=== PATIENT | female | born 1935 | race Caucasian/White ===

== ENCOUNTER 2024-07-16 16:17 | Inpatient (IN) | payer MEDICARE, BC ==
[~2024-07-16] VITALS: Ht 170.2 cm; Wt 70.9 kg
[~2024-07-16 16:17] MED LIST: ACET-1008 PO; DIO160T PO; GUAI400T92 PO; HYDR-3965 PO; LOP25T PO; MAG30ORA PO; MAGNESIUM HYDROXIDE PO; MELO-82 PO; MULT-1179 PO; MULT-785 PO; SIMV-42 PO; [UNRECOGNIZED DRUG - OTHER] NS
[2024-07-16 17:25] LABS: BASOPHILS % (AUTO) 0.4 % (0-1); EOSINOPHILS % (AUTO) 0.4 % (0-6); HEMATOCRIT 42.9 % (35.0-45.0); HEMOGLOBIN 14.8 g/dl (12.0-16.0); LYMPHOCYTES # (AUTO) 1.6 X10'3 (1.1-4.8); LYMPHOCYTES % (AUTO) 14.3 % (21-51); MEAN CORPUSCULAR HGB CONC 34.6 g/dL (33.0-36.5); MEAN CORPUSCULAR VOLUME 92.5 FL (78-98); MEAN PLATELET VOLUME 7.9 FL (7.4-10.4); MONOCYTES # (AUTO) 1.2 X10'3 (0-0.9); MONOCYTES % (AUTO) 11.2 % (2-12); NEUTROPHILS % (AUTO) 73.7 % (42-75); PLATELET COUNT 325 X10'3 (140-440); RED BLOOD COUNT 4.64 X10'6 (4.20-5.60); RED CELL DISTRIBUTION WIDTH 13.2 % (11.5-14.5); WHITE BLOOD COUNT 10.9 X10'3 (4.5-11.0)
[2024-07-16 18:04] LABS: BILIRUBIN,URINE NEGATIVE (Neg); CLARITY,URINE CLEAR (Clear); COLOR,URINE YELLOW (Yellow); GLUCOSE, URINE NEGATIVE (Neg); KETONES,URINE 15 mg/dl (Neg); LEUKOCYTE ESTERASE ,URINE NEGATIVE (Neg); NITRITES, URINE NEGATIVE (Neg); OCCULT BLOOD,URINE TRACE-INTACT (Neg); PH,URINE 5.5 (4.8-8.0); PROTEIN,URINE NEGATIVE (Neg); UROBILINOGEN,URINE 0.2 E.U/dL (0.2-1.0)
[2024-07-16 18:07] LABS: UA COLLECTION TYPE NON-SPECIFIED
[2024-07-16 18:08] LABS: BACTERIA,URINE NONE SEEN /HPF (Neg); MUCUS STRANDS FEW /LPF (Neg); RBC,URINE 0-2 /HPF (0-2); SQUAMOUS EPITHELIAL CELL,UR FEW /LPF (FEW); WBC,URINE 0-4 /HPF (0-4)
[2024-07-16 18:22] LABS: ALBUMIN 2.9 G/DL (3.4-5.0); ANION GAP 12 (8-16); BLOOD UREA NITROGEN 21 MG/DL (7-18); BUN/CREATININE RATIO 26.9 (10.0-20.0); CALCIUM 9.4 MG/DL (8.5-10.1); CHLORIDE 95 MMOL/L (99-107); CREATININE 0.78 MG/DL (0.40-0.90); GLUCOSE 137 MG/DL (70-104); LIPASE 56 U/L (16-77); POTASSIUM 3.9 MMOL/L (3.5-5.1); SODIUM 130 MMOL/L (135-145); TOTAL CARBON DIOXIDE 22.8 MMOL/L (24-32); eCRCL 48 ML/MIN; eGFR 70 ML/MIN
[2024-07-16] MEDS: CefTRIAXone/D5W-Rocephin 1gm 50 ML IV ONE (18:50)
[2024-07-16 19:05] LABS: D-DIMER 0.98 MG/L FEU (0-0.50)
[2024-07-16 19:11] LABS: PRO BRAIN NATRIURETIC PEPTIDE 406 PG/ML (0-450)
[2024-07-16] MEDS ORDERED: iohexol 350MG/ML 100ml bottle IV ONE (19:50)
[2024-07-16] MEDS: azithromycin/NS 500mg/250ml 250 ML IV SCH (20:25)
[2024-07-16] MEDS: normal saline 1000ML IV soln IVB ONE (20:25)
[2024-07-16] MEDS ORDERED: METO25TA6 PO (20:30)
[2024-07-16] MEDS ORDERED: IRBE1TAB33 PO (20:30)
[2024-07-16] MEDS ORDERED: PANT40TA54 PO (20:31)
[2024-07-16] MEDS ORDERED: magnesium Cl slow-release 64mg tablet PO PRN (21:35)
[2024-07-16] MEDS ORDERED: magnesium sulf-water 2g/50mL 50 ML IV PRN (21:35)
[2024-07-16] MEDS ORDERED: potassium Cl 40MEQ/1/2NS 520ml 520 ML IV PRN (21:35)
[2024-07-16] MEDS ORDERED: potassium Cl 20 mEq SR tablet PO PRN (21:35)
[2024-07-16] MEDS ORDERED: mag hydrox/Alum hydrox/simeth 30ml oral suspension PO PRN (21:35)
[2024-07-16] MEDS ORDERED: magnesium hydroxide 30ml (MOM) UD suspension PO PRN (21:35)
[2024-07-16] MEDS ORDERED: acetaminophen 325mg tablet PO PRN (21:35)
[2024-07-16] MEDS ORDERED: ondansetron/PF 4mg/2ml inj IV PRN (21:35)
[2024-07-16] MEDS ORDERED: magnesium sulf-water 4G/100mL 100 ML IV PRN (21:35)
[2024-07-16] MEDS: normal saline 1000ml 1,000 ML IV SCH (22:33)
[2024-07-16] MEDS ORDERED: albuterol 2.5 MG/3 ML nebule NEB PRN (23:20)
[2024-07-16] MEDS: guaiFENesin ER 600mg tablet PO SCH (23:36)
[2024-07-17 01:26] VITALS: PULSE 58; RESP 20; O2SAT 92
[2024-07-17 03:14] LABS: BASOPHILS % (AUTO) 0.2 % (0-1); EOSINOPHILS % (AUTO) 0.4 % (0-6); HEMATOCRIT 36.1 % (35.0-45.0); HEMOGLOBIN 12.6 g/dl (12.0-16.0); LYMPHOCYTES % (AUTO) 20.5 % (21-51); MEAN CORPUSCULAR HEMOGLOBIN 32.2 PG (27.0-31.0); MEAN CORPUSCULAR HGB CONC 34.7 g/dL (33.0-36.5); MEAN CORPUSCULAR VOLUME 92.5 FL (78-98); MONOCYTES # (AUTO) 1.3 X10'3 (0-0.9); MONOCYTES % (AUTO) 12.8 % (2-12); NEUTROPHILS # (AUTO) 6.5 X10'3 (1.8-7.7); NEUTROPHILS % (AUTO) 66.1 % (42-75); PLATELET COUNT 262 X10'3 (140-440); RED CELL DISTRIBUTION WIDTH 13.1 % (11.5-14.5); WHITE BLOOD COUNT 9.8 X10'3 (4.5-11.0)
[2024-07-17 03:25] LABS: APTT 27 SECONDS (22-32); INR 1.2 INR; PROTHROMBIN TIME 12.3 SECONDS (9.0-12.0)
[2024-07-17 03:39] LABS: ALANINE AMINOTRANSFERASE 18 U/L (12-78); ALBUMIN 2.3 G/DL (3.4-5.0); ALBUMIN/GLOBULIN RATIO 0.6 (1.1-1.5); ALKALINE PHOSPHATASE 93 IU/L (46-116); ANION GAP 6 (8-16); ASPARTATE AMINO TRANSFERASE 16 U/L (10-37); BILIRUBIN,TOTAL 0.7 MG/DL (0.1-1.0); BLOOD UREA NITROGEN 15 MG/DL (7-18); BUN/CREATININE RATIO 22.1 (10.0-20.0); CHLORIDE 103 MMOL/L (99-107); CREATININE 0.68 MG/DL (0.40-0.90); GLUCOSE 98 MG/DL (70-104); MAGNESIUM 1.8 MG/DL (1.5-2.4); PHOSPHORUS 3.2 MG/DL (2.3-4.5); POTASSIUM 3.5 MMOL/L (3.5-5.1); SODIUM 135 MMOL/L (135-145); TOTAL CARBON DIOXIDE 25.8 MMOL/L (24-32); TOTAL PROTEIN 6.1 G/DL (6.4-8.2); eCRCL 55 ML/MIN; eGFR 81 ML/MIN
[2024-07-17] MEDS: K and/or MAG REPLACEMENT MC SCH (08:00)
[2024-07-17 08:03] LABS: URINE AMPHETAMINE SCREEN NEGATIVE (Neg); URINE BARBITUATE SCREEN NEGATIVE (Neg); URINE BENZODIAZEPINES SCREEN NEGATIVE (Neg); URINE CANNABINOID SCREEN NEGATIVE (Neg); URINE COCAINE SCREEN NEGATIVE (Neg); URINE METHADONE SCREEN NEGATIVE (Neg); URINE OPIATE SCREEN NEGATIVE (Neg); URINE PHENCYCLIDINE SCREEN NEGATIVE (Neg)
[2024-07-17] MEDS: benzonatate 100mg capsule PO SCH (08:05)
[2024-07-17] MEDS: pantoprazole 40mg Tablet.DR PO SCH (08:05)
[2024-07-17] MEDS: doxycycline inj 100 MG in normal saline 100ml IV soln 100 ML IV SCH (08:05)
[2024-07-17] MEDS: CefTRIAXone 2gm/D5W 50ml BAG 50 ML IV SCH (08:05)
[2024-07-17] MEDS: HYDROchlorothiazide 12.5mg capsule PO SCH (08:06)
[2024-07-17] MEDS: metoprolol tartrate 25mg tablet PO SCH (08:06)
[2024-07-17] MEDS: docusate sod 100mg capsule PO SCH (08:07)
[2024-07-17] MEDS: losartan 50mg tablet PO SCH (08:12)
[2024-07-17] MEDS ORDERED: AMLO5TAB16 PO (19:45)
[2024-07-17] MEDS: simvastatin 20mg tablet PO SCH (20:34)
[2024-07-17] MEDS: enoxaparin 40mg/0.4ml syringe SQ SCH (21:53)
[2024-07-18] VITALS (9 sets, daily range): BP systolic 123–143; BP diastolic 56–66; PULSE 79–124; RESP 13–24; TEMP 97.3–98; O2SAT 92–95
[2024-07-18 03:41] LABS: APTT 30 SECONDS (22-32)
[2024-07-18 03:47] LABS: ALANINE AMINOTRANSFERASE 25 U/L (12-78); ALBUMIN 2.3 G/DL (3.4-5.0); ALBUMIN/GLOBULIN RATIO 0.6 (1.1-1.5); ALKALINE PHOSPHATASE 102 IU/L (46-116); ANION GAP 11 (8-16); ASPARTATE AMINO TRANSFERASE 22 U/L (10-37); BILIRUBIN,TOTAL 0.6 MG/DL (0.1-1.0); BLOOD UREA NITROGEN 11 MG/DL (7-18); BUN/CREATININE RATIO 18.3 (10.0-20.0); CALCIUM 8.8 MG/DL (8.5-10.1); CHLORIDE 103 MMOL/L (99-107); CHOL/HDL RATIO 3.8 (0.00-4.99); CHOLESTEROL 114 MG/DL (0-200); FREE T4 (FREE THYROXINE) 1.53 NG/DL (0.73-1.40); GLUCOSE 96 MG/DL (70-104); HDL CHOLESTEROL 30 MG/DL (35-60); LDL CHOLESTEROL 68 MG/DL (50-100); MAGNESIUM 1.8 MG/DL (1.5-2.4); PHOSPHORUS 3.1 MG/DL (2.3-4.5); POTASSIUM 3.4 MMOL/L (3.5-5.1); SODIUM 138 MMOL/L (135-145); THYROID STIMULATING HORMONE 0.32 ulU/ml (0.34-4.50); TOTAL PROTEIN 6.3 G/DL (6.4-8.2); TRIGLYCERIDES 61 MG/DL (20-135); eCRCL 62 ML/MIN; eGFR > 90 ML/MIN
[2024-07-18] MEDS: ipratropium/albuterol 3ml nebule NEB PRN (05:06)
[2024-07-18] MEDS: diltiazem 5mg/ml 5ml inj. IV ONE ×3 (05:14→06:55)
[2024-07-18] MEDS: metoprolol tartrate 1mg/ml inj IV ONE (05:16)
[2024-07-18] MEDS: apixaban 5mg tablet PO SCH (05:54)
[2024-07-18 07:02] LABS: BASOPHILS % (AUTO) 0.2 % (0-1); EOSINOPHILS # (AUTO) 0.1 X10'3 (0-0.9); EOSINOPHILS % (AUTO) 1.6 % (0-6); HEMATOCRIT 41.9 % (35.0-45.0); LYMPHOCYTES # (AUTO) 1.7 X10'3 (1.1-4.8); LYMPHOCYTES % (AUTO) 17.9 % (21-51); MEAN CORPUSCULAR HEMOGLOBIN 31.1 PG (27.0-31.0); MEAN CORPUSCULAR HGB CONC 33.4 g/dL (33.0-36.5); MEAN PLATELET VOLUME 7.7 FL (7.4-10.4); MONOCYTES # (AUTO) 0.9 X10'3 (0-0.9); MONOCYTES % (AUTO) 9.6 % (2-12); NEUTROPHILS # (AUTO) 6.5 X10'3 (1.8-7.7); NEUTROPHILS % (AUTO) 70.7 % (42-75); PLATELET COUNT 334 X10'3 (140-440); RED BLOOD COUNT 4.51 X10'6 (4.20-5.60); RED CELL DISTRIBUTION WIDTH 13.4 % (11.5-14.5); WHITE BLOOD COUNT 9.2 X10'3 (4.5-11.0)
[2024-07-18] MEDS: potassium Cl 20 mEq SR tablet PO PRN (08:10)
[2024-07-18 11:38] LABS: INR 1.2 INR; PROTHROMBIN TIME 12.1 SECONDS (9.0-12.0)
[2024-07-19 02:00] VITALS: BP 141/66; PULSE 70; RESP 14; TEMP 97.2; O2SAT 96
[2024-07-19 06:00] VITALS: BP 146/74; PULSE 81; RESP 17; TEMP 97.8; O2SAT 93
[2024-07-19 06:56] LABS: BASOPHILS % (AUTO) 0.2 % (0-1); EOSINOPHILS # (AUTO) 0.1 X10'3 (0-0.9); EOSINOPHILS % (AUTO) 1.1 % (0-6); HEMATOCRIT 39.7 % (35.0-45.0); HEMOGLOBIN 13.3 g/dl (12.0-16.0); LYMPHOCYTES # (AUTO) 2.4 X10'3 (1.1-4.8); LYMPHOCYTES % (AUTO) 20.9 % (21-51); MEAN CORPUSCULAR HEMOGLOBIN 31.3 PG (27.0-31.0); MEAN CORPUSCULAR HGB CONC 33.6 g/dL (33.0-36.5); MEAN CORPUSCULAR VOLUME 93.1 FL (78-98); MEAN PLATELET VOLUME 7.7 FL (7.4-10.4); MONOCYTES % (AUTO) 8.9 % (2-12); NEUTROPHILS # (AUTO) 7.8 X10'3 (1.8-7.7); NEUTROPHILS % (AUTO) 68.9 % (42-75); PLATELET COUNT 347 X10'3 (140-440); RED BLOOD COUNT 4.26 X10'6 (4.20-5.60); RED CELL DISTRIBUTION WIDTH 13.8 % (11.5-14.5); WHITE BLOOD COUNT 11.3 X10'3 (4.5-11.0)
[2024-07-19 07:02] LABS: APTT 29 SECONDS (22-32); INR 1.2 INR; PROTHROMBIN TIME 12.5 SECONDS (9.0-12.0)
[2024-07-19 07:13] LABS: ALANINE AMINOTRANSFERASE 27 U/L (12-78); ALBUMIN 2.2 G/DL (3.4-5.0); ALBUMIN/GLOBULIN RATIO 0.5 (1.1-1.5); ALKALINE PHOSPHATASE 101 IU/L (46-116); ANION GAP 9 (8-16); ASPARTATE AMINO TRANSFERASE 18 U/L (10-37); BILIRUBIN,TOTAL 0.5 MG/DL (0.1-1.0); BLOOD UREA NITROGEN 16 MG/DL (7-18); BUN/CREATININE RATIO 26.2 (10.0-20.0); CHLORIDE 105 MMOL/L (99-107); CREATININE 0.61 MG/DL (0.40-0.90); GLUCOSE 103 MG/DL (70-104); MAGNESIUM 1.8 MG/DL (1.5-2.4); PHOSPHORUS 3.2 MG/DL (2.3-4.5); SODIUM 140 MMOL/L (135-145); TOTAL CARBON DIOXIDE 25.8 MMOL/L (24-32); TOTAL PROTEIN 6.3 G/DL (6.4-8.2); eCRCL 61 ML/MIN; eGFR > 90 ML/MIN
[2024-07-19 08:00] VITALS: RESP 16; O2SAT 97
[2024-07-19 11:00] VITALS: BP 122/77; PULSE 83; RESP 16; TEMP 97.6; O2SAT 97
[2024-07-19] MEDS ORDERED: BUDE10.22 INH (11:12)
[2024-07-19] MEDS ORDERED: ALBU8HFA PO (11:12)
[2024-07-19] MEDS ORDERED: BENZ-111 PO (11:12)
[2024-07-19] MEDS ORDERED: CEFD300C3 PO (11:12)
[2024-07-19] MEDS ORDERED: DOXY-460 PO (11:12)
[2024-07-19] MEDS ORDERED: APIX5TAB3 PO (12:19)
== END 2024-07-19 14:54 | disposition home health service (06) | DRG 189 ==
LOC: ER 16:17 → ED HOLD 21:41 → PCU 3S 07-18 07:20
PROVIDERS: ADMIT Internal Medicine Critical Care Medicine; ATTEND Internal Medicine
PROC: B32T1ZZ Computerized Tomography (CT Scan) of Left Pulmonary Artery using Low Osmolar Contrast (ICD-10-PCS; principal; 2024-07-16)
PROC: B3201ZZ Computerized Tomography (CT Scan) of Thoracic Aorta using Low Osmolar Contrast (ICD-10-PCS; 2024-07-16)
PROC: B32S1ZZ Computerized Tomography (CT Scan) of Right Pulmonary Artery using Low Osmolar Contrast (ICD-10-PCS; 2024-07-16)
DX: J96.01 Acute respiratory failure with hypoxia (principal); J15.9 Unspecified bacterial pneumonia; E87.1 Hypo-osmolality and hyponatremia; J98.11 Atelectasis; I10 Essential (primary) hypertension; E78.00 Pure hypercholesterolemia, unspecified; E87.6 Hypokalemia; G89.29 Other chronic pain; E87.8 Other disorders of electrolyte and fluid balance, not elsewhere classified; I48.0 Paroxysmal atrial fibrillation; Z20.822 Contact with and (suspected) exposure to COVID-19; K21.9 Gastro-esophageal reflux disease without esophagitis; Z96.642 Presence of left artificial hip joint; E04.2 Nontoxic multinodular goiter; E07.81 Sick-euthyroid syndrome; I45.81 Long QT syndrome; Z87.01 Personal history of pneumonia (recurrent); Z88.0 Allergy status to penicillin; Z88.2 Allergy status to sulfonamides; Z79.899 Other long term (current) drug therapy
CPT/HCPCS: 36415; 71045; 71275; 76536; 80048; 80053; 80061; 80305; 81001; 83036; 83605; 83690; 83735; 83880; 84100; 84145; 84439; 84443; 84484; 85025; 85379; 85610; 85730; 87040; 87081; 87502; 87503; 87811; 93005; 93306; 93970; 94640; 94760; 97116; 97161; 97530; 99285; A4615; A6449; G0378; J0456; J0696; J1650; J3490; J7030; Q9967